=== PATIENT | male | born 1955 | race Caucasian/White ===

== ENCOUNTER 2020-10-04 05:44 | Day surgery (SDC) | payer MEDICARE ==
[~2020-10-04] VITALS: Ht 185.4 cm; Wt 75.4 kg
[2020-10-04] VITALS (10 sets, daily range): BP systolic 124–170; BP diastolic 69–94; PULSE 56–77; TEMP 97.5–98
[2020-10-04] MEDS ORDERED: VITAMIN D PO (06:22)
[2020-10-04] MEDS ORDERED: ASPIRIN 81M81 MG/TA2 PO (06:23)
[2020-10-04] MEDS ORDERED: VTAMINC250TA PO (06:23)
[2020-10-04] MEDS ORDERED: MILK THISTLE150 MG PO (06:24)
[2020-10-04] MEDS ORDERED: [UNRECOGNIZED DRUG - OTHER] PO (06:24)
[2020-10-04] MEDS ORDERED: ONE-A-DAY ESSE1 EACH PO (06:25)
[2020-10-04] MEDS ORDERED: D3-5050000 IU PO (06:25)
[2020-10-04] MEDS ORDERED: B COMPLEX #11 TA1 PO (06:25)
[2020-10-04] MEDS ORDERED: SAW PALMETTO 101 SGL PO (06:25)
[2020-10-04] MEDS ORDERED: OMEGA-3 1000 MG1 CAP PO (06:26)
--- NOTE | 2020-10-04 09:05 | NUR ---
Patient arrives to [facility] [place] via cart, accompanied by [employer] Chelsy Marte. He is sitting up in bed, alert and oriented. His operative leg is elevated with bed, has ice on his left knee. He has an RAHUL wrap dressing that extends from foot to upper thigh. It is clean/dry/intact. His toes are warm, pink. +1 pulses DP and PT, same as pre-op. He states his pain is comfortable. He complains of some dizziness after the pain medication he received in PACU. Monitoring is applied -VSS and WNL on room air. He is eating ice chips and does not want to advance diet at this time. His call light is in reach. Will continue to monitor.
--- NOTE | 2020-10-04 09:20 | NUR ---
Patient is resting comfortably in room. His BP is slightly elevated, will recheck at next check. Pain remains tolerable. He states he is still slightly dizzy. Neurovascular assessment of LLE remains WNL.
--- NOTE | 2020-10-04 09:45 | NUR ---
Patient complains of mild nausea. He is given Promethazine PO for nausea. He has water and crackers to sip/eat. He is given an emesis bag in case he has sudden emesis. His call light is in reach.
--- NOTE | 2020-10-04 09:59 | NUR ---
Patient looks very sleepy. Denies needs at this time. Offered to lower HOB and dim lights so he could rest, he denies. VSS on room air.
--- NOTE | 2020-10-04 10:05 | NUR ---
Patient is resting comfortably in room. He is awake, alert. He states nausea is improving. He states his pain is "good". Will continue to monitor.
--- NOTE | 2020-10-04 10:35 | NUR ---
Patient is resting when staff enters, he awakens and denies needs. He states he is starting to feel better. We discuss the plan of care and he verbalizes understanding of the discharge criteria.
--- NOTE | 2020-10-04 11:05 | NUR ---
Patient is sitting up in bed, eating crackers, drinking water. He states he is feeling better. Will continue to monitor.
--- NOTE | 2020-10-04 11:35 | NUR ---
VSS on room air. Patient ambulates to the restroom using crutches and staff assistance. He voids a large amount of clear/yellow urine. Returns to room. He lies back down to rest, as he still feels a little dizzy.
--- NOTE | 2020-10-04 12:15 | NUR ---
Patient states his dizziness is improved. He would like to get dressed. STaff assists him to dress. He would like to continue to rest for now. PIV is saline locked.
--- NOTE | 2020-10-04 12:47 | NUR ---
Patient has met discharge criteria. He states he is feeling well and will call his ride to go home. Discharge instructions are discussed. He denies any questions and verbalizes understanding. PIV is removed with catheter intact and hemostasis achieved. Patient is instructed to notify staff when his ride arrives.
--- NOTE | 2020-10-04 13:50 | NUR ---
Patient is escorted to the exit via wheelchair by staff at this time. He is discharged to home with ride in private vehicle at 1350.
== END 2020-10-04 13:50 | disposition home or self-care (01) ==
LOC: SDCO 05:44
DX: S83.242A Other tear of medial meniscus, current injury, left knee, initial encounter (principal); M94.262 Chondromalacia, left knee; I10 Essential (primary) hypertension; M19.90 Unspecified osteoarthritis, unspecified site; Z20.828 Contact with and (suspected) exposure to other viral communicable diseases; Z85.828 Personal history of other malignant neoplasm of skin
CPT/HCPCS: J0690; J1100; J1170; J1885; J2250; J2405; J2704; J3010; J7120